=== PATIENT | male | born 2000 | race Caucasian/White ===

== ENCOUNTER 2019-10-08 01:37 | Observation (INO) | payer BC, OTHER, SELFPAY ==
[2019-10-08] VITALS (17 sets, daily range): BP systolic 106–129; BP diastolic 56–88; PULSE 56–102; RESP 12–21; TEMP 36–37; O2SAT 93–100; BMI 27.5; BMI 26.6; BMI 26.7
--- NOTE | 2019-10-08 01:46 | RAD_ITS ---
STUDY: X-RAY - LEFT TIBIA AND FIBULA REASON FOR EXAM: Male, 19 years old. fell off a step -- deformity to lt ankle -- pain entire lt lower leg TECHNIQUE: 2 view(s) of the tibia and fibula were obtained. COMPARISON: None. FINDINGS: Spiral fracture of the distal one third of the tibial shaft with approximately 1.2 cm displacement. Spinal fracture of the distal fibular shaft with angulation and anterior displacement of the major proximal fragment. Soft tissue swelling of the distal calf. RAD/Tibia & Fibula 2 Views IMPRESSION: Fractures of the distal tibia and fibula as described. Electronically Signed: Nneka Smiley MD at 2:35 EDT , Service support ,
[2019-10-08] MEDS: morphine 8 MG/ML Syringe IV (01:54)
--- NOTE | 2019-10-08 01:55 | RAD_ITS ---
STUDY: X-RAY - LEFT ANKLE REASON FOR EXAM: Male, 19 years old. fell off a step -- deformity to lt ankle -- pain entire lt lower leg TECHNIQUE: 3 view(s) of the ankle. COMPARISON: None. FINDINGS: Fracture of the distal tibial shaft with approximately 1.2 cm displacement. There is mild undulation, tip of the ankle pointing anteriorly. A second spiral fracture involving the distal fibular shaft with anterior angulation and anterior displacement of the major cephalad fragment. Otherwise normal medial and lateral malleoli. Normal tibiotalar articulation and ankle mortise. Normal visualized talus and calcaneus. The visualized subtalar, talonavicular, calcaneocuboid and tarsal articulations are normal. Soft tissue swelling of the distal calf. RAD/Ankle min 3 Views IMPRESSION: Distal tibial and fibular fractures as described. Electronically Signed: Nneka Smiley MD at 2:36 EDT , Service support ,
--- NOTE | 2019-10-08 02:34 | ED.VIS.GEN ---
History of Present Illness Chief Complaint: Lower Extremity Injury Informant: Patient Narrative: He stated he was trying to walk his dog and fell down some stairs when he was taken him outside. He felt a snap in his left distal mathews and he noted a deformity. Girlfriend brought him in. Denies any medical problems. Happened just prior to arrival. Current severity is severe. Unable to walk. No previous injuries. Does not take any medications. Worsened by movement. No home treatment Past Medical History - Allergies and Home Meds Allergies/Adverse Reactions: Allergies No Known Allergies Allergy (Verified 10/08/19 01:39) Prior records reviewed: Yes Past Medical History: None Surgical History: noncontributory Lives: With Family Smoking Status: Current every day smoker Alcohol: None Drugs: None Review of Systems General: Denies: Chills, Fever, Sweats Eyes: Denies: Visual changes - bilaterally, Diplopia ENT: Denies: Rhinorrhea, Sore throat Cardiovascular: Denies: Chest pain, Palpitations Respiratory: Denies: Dyspnea, Cough, Dyspnea on exertion Gastrointestinal: Denies: Abdominal pain, Nausea, Vomiting, Diarrhea, Melena, Hematochezia Genitourinary: Denies: Dysuria, Hematuria, Frequency Musculoskeletal: Reports: Extremity Pain. Denies: Back pain Skin: Denies: Rash, Wounds Neurological: Denies: Headache, Weakness, Numbness Physical Exam Vital Signs/Narrative: Vital Signs Temp Pulse Resp BP Pulse Ox 10/08/19 01:39 98.6 F 102 H 18 127/88 H 99 General: Well nourished, Well developed, No Acute Distress Head: Normocephalic, Atraumatic Eyes: Perrl, EOMI ENT: Moist mucous membranes, No rhinorrhea Neck: Supple, Nontender Cardiovascular: Regular rate, Regular rhythm, No murmurs Respiratory: No distress, CTA bilaterally, Chest nontender Abdomen: Soft, Nontender, Nondistended, Normal bowel sounds Back: Nontender, Normal Inspection Extremities: No edema, Tenderness - She has a deformity on his distal left mathews with tenderness and decreased range of motion. There is no tenting. There is no pushing of the skin upwards. He has good pulses distally. Able to wiggle his toes without problems. No evidence of compartment syndrome. His soft tissues are soft.. Negative for: Nontender Skin: Normal color, No rash Neurological: Alert, Oriented x3, Cranial nerves II-XII grossly intact, Normal Strength, Normal Sensation Psychological: Normal affect, Normal Mood Diagnostic/Tx/Re-eval - Medical Decision Making X-ray of the lower extremity shows a distal tibia mathews fracture with angulation and dissociation of the bones. There is a distal fibula fracture as well with angulation and dissociation in a posterior fragment. This was discussed with Dr. Valiente who asked that I reduce this and place him in a splint and admit him. Preoperative labs were sent. Was given propofol approximately 60 mg in incremental dosing to achieve procedural sedation. He consented to this. The distal fractures were then reduced with manual traction. A fabricated Ortho-Glass splint was placed in a sugar tong position. Patient was given nasal cannula oxygen and had no complications throughout this procedure. He woke with no pain. He is resting comfortably. His compartments remain soft with no evidence of compartment syndrome. His distal vascular exam is still intact after splinting. He has good pulses dorsalis pedis. Reduction x-ray shows still some dissociation of the bone fragments but on the lateral view he is now nice and straight. Will be admitted for surgical fixation ED Disposition - Plan for ED Patient: Disposition: [facility] Care [facility], [place] Diagnosis: Fracture of distal end of tibia with fibula
[2019-10-08] MEDS: Propofol 200 MG/20 ML Vial IV BOLUS (02:47)
[2019-10-08 02:52] LABS: Absolute Lymphocyte Count 1.43 X10^3/uL (0.83-4.51); Absolute Neutrophil Count 6.2 X10^3/uL (2.0-7.7); Basophil# 0.03 X10^3/uL; Basophil% 0.4 % (0-1); Eosinophil# 0.05 X10^3/uL; Eosinophils% 0.6 % (0-5); Hematocrit 40.1 % (40-54); Hemoglobin 13.8 g/dL (13.0-16.5); Lymphocyte # 1.43 X10^3/ul (4.0); Lymphocyte % 17.5 % (19-41); Mean Corp Hgb Conc 34.4 g/dL (32-36); Mean Corpuscular Hgb 29.3 pg (27.0-32.0); Mean Corpuscular Volume 85.1 fL (80-94); Mean Platelet Vol. 9.5 fl (6.2-12.0); Monocyte# 0.48 X10^3/uL; Monocyte% 5.9 % (0-10); NRBC Flagged by Analyzer 0 % (0-5); Neutrophil # 6.17 X10^3/uL (2.7-7.7); Neutrophil % 75.4 % (47-70); Platelet Count 244 K/mm3 (150-450); Prothrombin Time (Protime)PT. 12.8 SECONDS (11.7-14.9); RBC Distribution Width CV 11.9 % (11.6-14.6); RBC Distribution Width SD 36.4 fl (35.1-43.9); Red Blood Count 4.71 M/mm3 (4.6-6.2); White Blood Count 8.2 K/mm3 (4.4-11.0)
[2019-10-08 02:53] LABS: Partial Thromboplast Time 26.5 Seconds (24.1-36.2)
--- NOTE | 2019-10-08 02:55 | RAD_ITS ---
STUDY: X-RAY - LEFT ANKLE REASON FOR EXAM: Male, 19 years old. POST REDUCTION TECHNIQUE: 3 view(s) of the ankle. COMPARISON: 10/08/2019 FINDINGS: Redemonstrated is spiral fracture of the distal tibia and fibula, unchanged in the interval. Normal medial and lateral malleoli. Normal tibiotalar articulation and ankle mortise. Normal visualized talus and calcaneus. The visualized subtalar, talonavicular, calcaneocuboid and tarsal articulations are normal. Nonspecific soft tissue swelling of the distal calf and ankle. RAD/Ankle min 3 Views IMPRESSION: Distal tibial and fibular fractures as described, stable in the interval. Electronically Signed: Nneka Smiley MD at 3:41 EDT , Service support ,
[2019-10-08 03:01] LABS: Anion Gap 10 (5-15); BUN 14 mg/dL (7-18); BUN/Creat Ratio 15.7 RATIO (10-20); Calcium,Total 8.6 mg/dL (8.5-10.1); Chloride 109 mmol/L (98-107); Creatinine, Serum 0.89 mg/dL (0.70-1.30); EST Glomerular Filtration Rate 115 mL/min (>60); Est Glom Filt Rate - Afr Amer 139 mL/min (>60); Estimated Creatinine Clearance 135.56 ml/min; Glucose 98 mg/dL (74-106); Potassium 3.1 mmol/L (3.5-5.1); Sodium Level 143 mmol/L (136-145)
[2019-10-08] MEDS: 0.9% Normal Saline 1,000 ML 120 ML IV (06:46)
[2019-10-08] MEDS: Morphine 2 MG/ML Syringe IV ×2 (06:46→09:19)
[2019-10-08] MEDS: Potassium Chloride 10mEq/100mL 10 MEQ/100 ML IV.SOLN. 100 MEQ IV BOLUS ×4 (06:47→10:22)
--- NOTE | 2019-10-08 11:00 | RAD_ITS ---
STUDY: X-RAY - LEFT TIBIA AND FIBULA REASON FOR EXAM: Male, 19 years old. Tibial and fibular fracture. ORIF. TECHNIQUE: 17 view(s) of the tibia and fibula were obtained. COMPARISON: October 08, 2019 at 2:57 AM. FINDINGS: 17 intraoperative images of the tibia and fibula were submitted. There is a oblique fracture within the distal fibular diaphysis. There is an oblique fracture noted within the distal fibular diaphysis as well. The images demonstrate placement of an intramedullary francisco javier within the femur. 2 screws are visualized within the distal femur. The alignment appears grossly anatomic. 78.6 seconds of fluoroscopy time was utilized. RAD/Tibia & Fibula 2 Views IMPRESSION: Internal fixation of distal tibial fracture with intramedullary francisco javier. The alignment appears grossly anatomic. Distal fibular fracture. Electronically Signed: Shirley Mckeon MD at 19:48 EDT Tel , Service support ,
[2019-10-08] MEDS: Cefazolin 2 GM in 0.9% Normal Saline 100 ML IV (11:05)
--- NOTE | 2019-10-08 11:07 | PCM.HP.STD ---
History of Present Illness Date of Admission: 10/08/19 Chief Complaint: Left leg pain The patient is a 19 year old M with minimal medical history, but chronic use of smokeless tobacco presents today after walking his dogs last evening. The dogs tangled him up and he sustained a fall down steps. He presented emergency department with gross deformity of the left lower extremity. Currently he reports 7 out of 10 pain improved with splinting and immobilization as well as morphine worse with motion. No associated numbness and tingling in the distal extremity. No fevers chills or night sweats. No reported open wounds. Patient is unable to bear weight secondary to the injury. Emergency room x-rays revealed a tibia and fibula shaft fracture on the left. It is a dull achy pain. Patient reports that he lives at home with his girlfriend and ambulates without any assistive devices normally. Past Medical History Medical History: Medical History (Last Updated 10/08/19 @ 11:[address] Jeffesron Valiente MD) Tobacco dependence due to chewing tobacco F17.220 Allergies No Known Allergies Allergy (Verified 10/08/19 01:39) Home Medications: Ambulatory Orders Medication Instructions Recorded NK 10/08/19 Surgical History: no surgical history - No family history of anesthetic complications Psychiatric History: No pertinent psych hx Lives: Spouse/ Significant Other, - - With girlfriend Smoking Status: Former smoker - Patient currently denies smoking Tobacco Use: Chew Alcohol: Occasional - 1-2 times per week Drugs: None - Denies IV drug abuse, denies drugs of abuse. Review of Systems Constitutional: Denies: Chills, Fever, Weight Change HEENT: Denies: Head Aches, Sinus Congestion, Sinus Drainage Cardiovascular: Denies: Chest Pain, Palpitations Respiratory: Denies: Cough, Shortness of breath at rest, Sputum production Gastrointestinal: Denies: Abdominal Pain, Nausea, Vomiting Genitourinary: Denies: Dysuria Musculoskeletal: Reports: Joint Pain, Joint Tenderness, Leg Pain Skin: Denies: Rash, Wounds Neurological: Denies: Numbness, Tingling, Focal weakness Psychiatric: Denies: Anxiety, Depression, Homicidal Ideations, Suicidal Ideations Hematologic/ Lymphatic: Denies: Easy Bruising, Easy Bleeding VTE Information - Inpt Only VTE Present on Admission: No VTE Mechan Device Prophylaxis: SCD's VTE Pharm Prophylaxis ordered?: Yes Patient Problems: Active and Suspected Problems Fracture of distal end of tibia with fibula (Acute) Objective: Left tibia and fibula x-rays show a mid to distal shaft tibia spiral fracture and distal fibular shaft fracture that are displaced and angulated. - Physical Exam Vitals/I&O's: Vital Signs Temp Pulse Resp BP Pulse Ox 98.5 F 79 18 106/60 98 10/08/19 10:24 10/08/19 10:24 10/08/19 10:24 10/08/19 10:10/08/19 10:24 Oxygen Flow Rate (L/min) [3] 2 Oxygen Flow Rate (L/min) [2] 2 Oxygen Flow Rate (L/min) [1 ( 2 Initial Baseline)] Oxygen Flow Rate (L/min) 2 Oxygen Delivery Method [3] Nasal Cannula Oxygen Delivery Method [2] Nasal Cannula Oxygen Delivery Method [1 ( Nasal Cannula Initial Baseline)] Oxygen Delivery Method Room Air Weight: 186 lb Body Mass Index (BMI) 26.6 Intake and Output for Last 24 Hours 10/06/19 10/07/19 10/08/19 23:59 23:59 23:59 Intake Total 300 / 300 Output Total 400 / 400 Balance -100 / -100 General: Alert, Oriented x3, Cooperative HEENT: Atraumatic Oral: Dry Mucosa Neck: No JVD Lungs: - - Nonlabored breathing Cardiovascular: - - Regular pulse rate Abdomen: Non-Distended Extremities: No clubbing, No cyanosis, No edema Skin: No breakdown Musculoskeletal: - - Left lower extremity: Extremity is splinted. Patient has sensation intact light touch saphenous, sural, superficial peroneal, deep peroneal and tibial nerve distributions. Able to wiggle all toes plantarflex and dorsiflex foot. Palpable pulses, all digits are warm and pink with brisk cap refill. Compartments are soft or palpable. Neurological: Cranial nerves II-XII grossly intact Laboratory Results 10/08/19 02:37: WBC 8.2, RBC 4.71, Hgb 13.8, Hct 40.1, MCV 85.1, MCH 29.3, MCHC 34.4, RDW Std Deviation 36.4, RDW Coeff of Presley 11.9, Plt Count 244, MPV 9.5, Immature Gran % (Auto) 0.200, Neut % (Auto) 75.4 H, Lymph % (Auto) 17.5 L, [place] % (Auto) 5.9, Eos % (Auto) 0.6, Baso % (Auto) 0.4, Absolute Neuts (auto) 6.2, Absolute Lymphs (auto) 1.43, Nucleated RBC % 0 10/08/19 02:37: PT 12.8, INR 1.0, APTT 26.5 10/08/19 02:37: Sodium 143, Potassium 3.1 L, Chloride 109 H, Carbon Dioxide 24.0, Anion Gap 10, BUN 14, Creatinine 0.89, Estim Creat Clear Calc 135.56, Est GFR (MDRD) Af Amer 139, Est GFR (MDRD) Non-Af 115, BUN/Creatinine Ratio 15.7, Glucose 98, Calcium 8.6 Current Medications Sodium Chloride () 250 mls @ 15 mls/hr IV .[id number] PRN PRN Reason: Saline Flush Last Infusion: 10/08/19 06:47 Dose: 0 mls/hr Documented by: Sodium Chloride () 1,000 mls @ 120 mls/hr IV .[id number] JACKIE Last Admin: 10/08/19 06:46 Dose: 120 mls/hr Documented by: Morphine Sulfate () 2 mg IV Q2H PRN PRN PRN Reason: Pain Score 1-10/10 Last Admin: 10/08/19 09:19 Dose: 2 mg Documented by: Ondansetron HCl (Zofran) 4 mg IV Q8H PRN PRN PRN Reason: NAUSEA Sodium Chloride () 10 - 40 ml IV UD PRN PRN Reason: SALINE FLUSH Assessment/Plan All Active Problems Fracture of distal end of tibia with fibula (Acute) Left displaced spiral tibia and fibular shaft fractures Natural history of the disease process and treatment options were discussed the patient. Based on patient's age fracture pattern and instability the fracture I recommended intramedullary nail fixation. Risks and benefits of the procedure were discussed the patient including but not limited to blood loss, DVTs, PEs, nervous damage, infection, general risk of anesthesia, loss of life, nonunion, malunion, and knee pain. Patient demonstrates an understanding. He is medically healthy. We did discuss cessation of nicotine use and the ramifications nicotine use can have on bone healing including wound healing complications and risk of nonunions. Patient demonstrated understanding and was able to sign informed consent. He wishes to proceed with surgery. We will proceed with surgery today. He is n.p.o. Antibiotics on-call to the operating room. [facility] Office:
--- NOTE | 2019-10-08 12:22 | PCM.OPRPT ---
Report of Operation Date of Procedure: 10/08/19 Pre-Operative Diagnosis: Left distal tibia-fibula spiral shaft fracture, displaced Post-Operative Diagnosis: Left distal tibia-fibula spiral shaft fracture, displaced Surgery/Procedure Performed:: Left suprapatellar intramedullary tibial nail Description of Surgical Findings:: Well reduced fracture, length alignment and rotation were appropriate. manager transit: Alisa Desai Type of Anesthesia:: Spinal General Anesthesia Anesthesiologist: Mihaela Dillon Special Medications: 2 g Ancef Estimated Blood Loss (mL): 50 Fluids Replaced: 500 mL crystalloid Description of Procedure: On the date of the procedure patient's left lower extremity was marked in the preoperative area after assessing for fracture. Patient was brought back to the operating room where anesthesia assumed control of the C-spine airway. Spinal anesthetic was administered patient was placed in the supine position. Patient was appropriately positioned. After this it was noted patient spinal and not yet set up he did receive general anesthetic. After general anesthetic was administered tourniquet was placed in the left thigh bump was placed on the left hip blankets were placed underneath the left lower extremity and the leg was adequately positioned. Once this was done chlorhexidine was used to prep the leg and the surgeon my podiatry assistant scrub. Trimmer Sawyer was vital in helping throughout the procedure especially in positioning preoperatively. Upon reentering the room the left lower extremity was draped in a standard orthopedic fashion. Incisions were marked out and timeout was called. When agreed upon the side, the site, the future performed, patient's identity antibiotic and. Knee was flexed to about 20 degrees and our attention was directed towards the site of the fracture. At the site of the fracture live x-rays used to verify incision placement for the clamp. A medial and lateral small incision were made nicking the skin and then blunt dissection was taken down through subtenons tissues and muscle in order to get to the bone. The clamp was placed to adequately reduce the fracture. Live x-ray was used to verify on AP and lateral views of the fracture was adequately reduced. Once this was done the clamp was left in place our attention was directed towards the knee. A suprapatellar arthrotomy was made bring the incision to the skin subtenons tissue fat down to fascia and through the suprapatellar portion of the quadriceps. Once this was done the patella was retracted laterally and the trocar was placed in the joint. Live x-ray was used to verify placement of the pin the pin was introduced appropriately. Over the guidepin we reamed the proximal opening area. Ball-tipped guidewire was placed past the fracture using live x-ray to verify center center placement. Once this was done and we had appropriate depth we measured for a 34 cm nail. We then reamed to 11-1/2 mm with good chatter in the diaphysis. Throughout the procedure we did continue to check the calf and the compartments remain soft. We then opened the nail a 34 cm x 10 mm Hill & Nephew tibial metal nail. The trocar was removed in the joint and the nail was introduced. Live x-ray was used to verify appropriate placement across the fracture. Also that the fracture did not displace or that we did not propagate fracture. Fracture reduction remain. Once this was done the guidewire was removed and the clamp was removed. Skin was assessed and appropriate. At this time using the perfect kluti kaah technique 2 distal screws were placed. Live x-rays used to verify the screw placement. We backslapped the fracture verifying reduction and compression. Live x-rays used to verify we had a good diaphyseal fit proximal to the fracture verifying a point of fixation. A single all nail screw was placed medial to lateral proximally. Live x-rays used to verify placement of the screw. We also used live x-ray to verify the knee the tibial nail was placed appropriately was then appropriate depth and angle. Once this was completed all wounds were copiously got normal saline. #1 Vicryl was used to close the arthrotomy. 2-0 Vicryl was used to close the subcuticular layers and final skin closure was done with stephane. A soft dressing was placed. Compartments were once again assessed and found to be soft. Patient was awakened by anesthesia transferred the PACU recovery. My nurse practitioner was vital throughout this procedure. She was vital helping obtain and maintain fracture reduction. She was vital in helping retract soft tissues and protect neurovascular structures throughout the procedure. She was vital in closure and placement of the dressing under my direct supervision. Postoperative plan: Patient is nonweightbearing for 2 weeks. This should be followed by 50% weightbearing from weeks 2-6. At 6 weeks if we see adequate healing he will be weightbearing as tolerated. He has good bony contact on a short oblique fracture with a well fixed nail. He will take aspirin 81 mg twice daily for DVT prophylaxis for 2 weeks. Him and his community worker/girlfriend have both been counseled on compartment syndrome and how this may develop over the next 24 to 48 hours. Patient wished to be discharged and feels comfortable monitoring symptoms. He knows that he should call me if he develops uncontrollable pain, excessive swelling or numbness and tingling in the extremity. On 08/29/2019 the [place] Department of Health ([facility]) Public Order signed by [facility] Director Blossom Mancini M.D., regarding the Management of Non-Essential Surgeries and Procedures for the purpose of preserving Personal Protective Equipment (PPE) and critical hospital capacity and resources within [place] went into effect as of 08/30/2019 at 5:00PM. According to the [facility] Public Order: This action will remain in full force and effect until the State of Emergency declared by the Governor no longer exists or the Director of the [facility] rescinds or modifies this Order. This [facility] order stated all non-essential or elective surgeries and procedures that utilize PPE should be delayed unless there is undue risk to the current or future health of a patient. After reviewing the aforementioned [facility] Public Order and the patients clinical case, I have determined that the scheduled procedure meets the criteria to go forward. Criteria the patient's condition meets is risk to permanent dysfunction of the extremity without urgent surgical intervention. Grafts/Implants Used: Hill & Nephew 10 mm x 34 cm tibial nail - Complications none - Admit VTE Documentation VTE Present on Admission: No VTE Mechan Device Prophylaxis: SCD's VTE Pharm Prophylaxis ordered?: Yes
--- NOTE | 2019-10-08 12:38 | DCINST_ITS ---
Discharge Diet: No Restrictions Discharge Activity: Use Crutches May shower in (days): 5 May resume sexual activity in: No Restrictions Ice area for (Minutes): 20 Weight Bearing Status: No weight bearing Elevate: Operative Extremity - above level of heart Additional Activity Instructions:: Wear elastic stockings for 2 weeks after your surgery. Call your doctor if your incision/area has: Continuous Slow Oozing, Sudden Increased Bleeding, Increased Pain/ Swelling, Increased Redness, Foul Smelling Discharge Call your doctor if you observe: Fever of 101 or Higher, Coldness, Increased Pain, Numbness or Tingling, Change in Color, Calf discomfort, Uncontrolled pain, - - Patient counseled on signs of compartment syndrome. He is going to watch out for excessive swelling, uncontrollable pain, numbness tingling, change in coloration of the digits or pulselessness. He will call the on-call doctor if this occurs. Change Dressing in (Days):: 5 - and daily as needed. Cleanse incision/area with: Keep Dressing Clean & Dry Additional Dressing/Incision Instructions:: If incision is clean dry and intact may leave the wound open to air and continue showering. If there is continued drainage continue daily dry dressing changes and keep incision clean dry and int act until there is no drainage. Allergies/Adverse Reactions: Allergies No Known Allergies Allergy (Verified 10/08/19 01:39) Medications to take at Discharge Acetaminophen [Tylenol Extra Strength] 1,000 mg PO Q8H #90 tab 10/08/19 Aspirin E.C. [Ecotrin] 81 mg PO BID #30 tab 10/08/19 Oxycodone [Oxyir] 5 - 10 mg PO Q4H PRN PRN 4 Days #40 tab 10/08/19 The following prescriptions were given: Aspirin E.C. [Ecotrin] 81 mg PO BID #30 tab Transmission Status: Sent to [address] Oxycodone [Oxyir] 5 - 10 mg PO Q4H PRN PRN 4 Days #40 tab PRN Reason: Pain Score 4-10/10 Transmission Status: Received by [address] Acetaminophen [Tylenol Extra Strength] 1,000 mg PO Q8H #90 tab Transmission Status: Sent to [address] Primary Care Physician: Care Physician,No Primary [Primary Care Provider] - Test Results: Test results from this visit will be discussed in further detail at your follow- up appointment, if applicable. Please Follow Up With: Shubham Florez PA-C - 2 weeks post op When: call isabel pascual @ [phone] Proposed Discharge Date: 10/08/19
--- NOTE | 2019-10-08 12:42 | RAD_ITS ---
STUDY: X-RAY - LEFT TIBIA AND FIBULA REASON FOR EXAM: Male, 19 years old. post op tibial rodding TECHNIQUE: 4 view(s) of the tibia and fibula were obtained. COMPARISON: Prior study of earlier this date 2:14 AM FINDINGS: And intramedullary tibial francisco javier is noted traversing the length of tibia. This is stabilizing an oblique fracture of the distal shaft, which appears in excellent alignment. There is a comminuted slightly displaced oblique fracture of the distal fibular shaft with an approximately 5 mm distraction of fracture fragments. Fracture alignment is significantly improved from the previous study. Skin stephane are noted in the anterior leg. RAD/Tibia & Fibula 2 Views IMPRESSION: Internal fixation of distal tibial fracture with intramedullary francisco javier. Fracture appears in excellent alignment. There is also demonstrated a comminuted slightly displaced oblique fracture of the distal fibular shaft with significant improvement of fracture alignment when compared to the prereduction study. Electronically Signed: Bernardino Hooper MD at 16:52 EDT , Service support ,
== END 2019-10-08 16:15 | disposition home or self-care (01) ==
LOC: ED 02:31 → MS3 03:21
PROVIDERS: Admitting Provider Specialist; Emergency Provider Emergency Medicine; Visit Provider Specialist
PROC: (CPT 27827; principal; 2019-10-08 11:00)
DX: S82.302A Unspecified fracture of lower end of left tibia, initial encounter for closed fracture (principal); S82.832A Other fracture of upper and lower end of left fibula, initial encounter for closed fracture; W10.9XXA Fall (on) (from) unspecified stairs and steps, initial encounter; Y93.K1 Activity, walking an animal; Y92.9 Unspecified place or not applicable; F17.220 Nicotine dependence, chewing tobacco, uncomplicated
CPT/HCPCS: 27827; 29515; 73590; 73610; 76000; 80048; 85025; 85610; 85730; 96361; 96374; 96375; 96376; 99218; 99284; 99406; C1713; C1776; J7030; J7050; A4216; G0378; J2405